=== PATIENT | female | born 1985 | race Two or more races ===

== ENCOUNTER 2019-08-09 18:11 | Emergency (ER) | payer MEDICAID ==
[~2019-08-09] VITALS: Ht 165.1 cm; Wt 58.5 kg
[2019-08-09 18:39] VITALS: BP 109/74; Ht 165.1 cm; Wt 58.5 kg
== END 2019-08-09 19:13 | disposition home or self-care (01) ==
LOC: ED 18:11
DX: J40 Bronchitis, not specified as acute or chronic (principal); R51 Headache

== ENCOUNTER 2020-01-01 07:59 | Emergency (ER) | payer OTHER, MEDICAID ==
[~2020-01-01] VITALS: Ht 162.6 cm; Wt 59.0 kg
[2020-01-01 08:16] VITALS: Ht 162.6 cm; Wt 59.0 kg
[2020-01-01 10:08] VITALS: BP 125/59
== END 2020-01-01 10:08 | disposition home or self-care (01) ==
LOC: ED 07:59
DX: S16.1XXA Strain of muscle, fascia and tendon at neck level, initial encounter (principal); V43.52XA Car driver injured in collision with other type car in traffic accident, initial encounter; Y93.I9 Activity, other involving external motion; Y92.488 Other paved roadways as the place of occurrence of the external cause; Y99.8 Other external cause status
CPT/HCPCS: J1885